=== PATIENT | male | born 1945 | race Caucasian/White ===

== ENCOUNTER 2017-12-18 10:22 | Day surgery (SDC) | payer MEDICARE, OTHER ==
[2017-12-16 15:35] LABS: MICROSCOPIC AUTO
[2017-12-16 15:36] LABS: ALANINE AMINOTRANSFERASE 19 U/L (12-78); ALBUMIN 3.6 g/dL (3.4-5.0); ANION GAP 5 mmol/L (5-15); CALCIUM 8.8 mg/dL (8.5-10.1); CHLORIDE 105 mmol/L (98-107); CREATININE 1.31 mg/dL (0.7-1.3)
[2017-12-16 15:38] LABS: ALKALINE PHOSPHATASE 63 U/L (45-117); BILIRUBIN,TOTAL 0.6 mg/dL (0.2-1.0); TOTAL PROTEIN 7.6 g/dL (6.4-8.2)
[~2017-12-18] VITALS: Ht 180.3 cm; Wt 89.8 kg
[~2017-12-18 10:22] MED LIST: CLON-365 PO; CLONAZEPAM PO; GABA-826 PO; LIPITOR PO; OXYC1TAB7 PO; OXYC1TAB9 PO; TAMS-11 PO
[2017-12-18] MEDS ORDERED: LACTATED RINGERS 1,000 ML IV SCH (10:41)
[2017-12-18] MEDS ORDERED: LIDOCAINE 1%, 2ML ONE (10:41)
[2017-12-18 10:44] VITALS: BP 114/79
[2017-12-18] MEDS ORDERED: LIDOCAINE 1%, 2ML SQ PRN (11:00)
[2017-12-18] MEDS ORDERED: LIDOCAINE-MPF 2% ,5ML ONE (13:03)
[2017-12-18] MEDS ORDERED: PROPOFOL 10 MG/ML, 20ML ONE (13:03)
[2017-12-18] MEDS ORDERED: LIDOCAINE GEL 2%, 5ML ONE (13:07)
[2017-12-18] MEDS ORDERED: DEXAMETHASONE 4 MG/ML, 1ML ONE ×2 (13:29)
[2017-12-18] MEDS ORDERED: HYDROcodone/APAP 7.5-325MG/15ML UDC PO PRN (13:30)
[2017-12-18] MEDS ORDERED: morphine SULFATE 10 MG/ML, 1ML IV PRN (13:30)
[2017-12-18] MEDS ORDERED: ONDANSETRON 2MG/ML, 2ML IVPush PRN (13:30)
[2017-12-18] MEDS ORDERED: FENTANYL PF 100 MCG/2ML IV PRN (13:30)
[2017-12-18] MEDS ORDERED: MEPERIDINE/PF 25MG/0.5ML IVPush PRN (13:30)
[2017-12-18] MEDS ORDERED: OXYcodone 5 MG/5 ML ORAL.SOL UDC PO PRN (13:30)
[2017-12-18] MEDS ORDERED: ONDANSETRON 2MG/ML, 2ML ONE (13:30)
[2017-12-18] MEDS ORDERED: CEFAZOLIN 1,000 MG ONE ×2 (13:33)
[2017-12-18] MEDS ORDERED: FENTANYL PF 100 MCG/2ML ONE (13:43)
== END 2017-12-18 16:35 | disposition home or self-care (01) ==
LOC: OUT 10:22
PROVIDERS: ATTEND Student in an Organized Health Care Education/Training Program
DX: N35.9 Urethral stricture, unspecified (principal); Z98.890 Other specified postprocedural states
CPT/HCPCS: 36415; 52276; 80053; 81001; 87086; 93005; C1769; J0690; J1100; J2405; J2704; J3010; J3490; J7120